=== PATIENT | female | born 1995 | race Caucasian/White ===

== ENCOUNTER → 2016-11-18 | Outpatient (CLI) | payer MEDICAID ==
[~2016-11-18] MED LIST: MOTR200T44 PO; PRENTAB13 PO; TYLE167L PO
[2016-11-18 13:39] LABS: MEAN CORPUSCULAR HEMOGLOBIN 32.3 pg (27.0-33.0); MEAN CORPUSCULAR HGB CONC 34.9 g/dl (32.0-36.5); MEAN CORPUSCULAR VOLUME 92.6 fl (80.0-96.0); RED CELL DISTRIBUTION WIDTH 13.7 % (11.5-14.5); WHITE BLOOD COUNT 10.1 K/mm3 (4.0-10.0)
== END ==
LOC: M SMT 09:41
PROVIDERS: ATTEND Advanced Practice Midwife
DX: Z34.83 Encounter for supervision of other normal pregnancy, third trimester (principal)

== ENCOUNTER → 2016-12-02 | Outpatient (REF) | payer MEDICAID | LOC: M LAB REF 12:53 | PROVIDERS: ATTEND Advanced Practice Midwife | DX: Z34.83 Encounter for supervision of other normal pregnancy, third trimester (principal) ==

== ENCOUNTER 2016-12-25 19:53 | Inpatient (IN) | payer OTHER ==
[~2016-12-25] VITALS: Ht 162.6 cm; Wt 65.0 kg
[2016-12-25 19:58] VITALS: BP 121/75
[2016-12-25 20:02] VITALS: BP 121/75
[2016-12-25] MEDS ORDERED: OXYTOCIN 30 UNITS IN 0.9% NaCl 500ML IV BAG (J2590) As Ordered ONE (20:13)
[2016-12-25 20:31] VITALS: BP 109/77
[2016-12-25] MEDS ORDERED: OXYTOCIN DRIP 30 UNITS in APPROPRIATE DILUENT 1 EA IV SCH (22:11)
[2016-12-25 22:15] VITALS: BP 143/75
[2016-12-25] MEDS ORDERED: METHYLERGONOVINE MALEATE 0.2 MG TAB PO PRN (22:15)
[2016-12-25] MEDS ORDERED: DOCUSATE SODIUM 100 MG CAP PO PRN (22:15)
[2016-12-25] MEDS ORDERED: ANUSOL HC CREAM 30GM TOP PRN (22:15)
[2016-12-25] MEDS ORDERED: MEASLES,MUMPS,RUBELLA VACCINE INJ (MMR-II) (90707) SC SCH (22:15)
[2016-12-25] MEDS ORDERED: RHOGAM 300 MCG (1500 IU) INJ (J2790) IM SCH (22:15)
[2016-12-25] MEDS ORDERED: ACETAMINOPHEN 500 MG TAB PO PRN (22:15)
[2016-12-25] MEDS ORDERED: DIBUCAINE 1% OINTMENT 30GM TOP PRN (22:15)
[2016-12-25 22:25] LABS: CORD GAS ABE V -0.1; CORD GAS HCO3 V 23.3 MEQ/L; CORD GAS O2 SAT V 90.1 %; CORD GAS PCO2 V 34.2 mmHg; CORD GAS PH V 7.451 UNITS; CORD GAS PO2 V 47.2 mmHg; CORD GAS SBC V 24.3 MEQ/L; CORD GAS TCO2 V 24.3 MEQ/L
[2016-12-25 22:28] LABS: CORD GAS ABE A -0.4; CORD GAS HCO3 A 24.5 MEQ/L; CORD GAS O2 SAT A 42.4 %; CORD GAS PCO2 A 41.2 mmHg; CORD GAS PH A 7.393 UNITS; CORD GAS PO2 A 19.5 mmHg; CORD GAS SBC A 23.2 MEQ/L; CORD GAS TCO2 A 25.8 MEQ/L
[2016-12-25 22:30] VITALS: BP 105/56
[2016-12-25 22:39] LABS: MEAN CORPUSCULAR HEMOGLOBIN 31.8 pg (27.0-33.0); MEAN CORPUSCULAR VOLUME 90.7 fl (80.0-96.0); RED CELL DISTRIBUTION WIDTH 13.6 % (11.5-14.5); WHITE BLOOD COUNT 10.8 K/mm3 (4.0-10.0)
[2016-12-25 22:45] VITALS: BP 103/76
[2016-12-26 00:28] VITALS: BP 108/56
[2016-12-26] MEDS: IBUPROFEN 800 MG TAB PO PRN ×2 (01:25→17:08)
[2016-12-26 05:46] VITALS: BP 130/70
[2016-12-26] MEDS: PRENATAL VITAMINS CHEWABLE TABLET PO SCH (09:33)
--- NOTE | 2016-12-26 12:11 | HPE ---
DATE OF ADMISSION: 12/25/2016 Anaya is a 21-year-old female 2, para 1-0-0-1 with an estimated date of confinement (EDC) of 12/27/2016, estimated gestational age (EGA) 39 and 5/7 weeks gestation who presented to labor and delivery with complaints of contractions every 2 to 3 minutes. Upon evaluation in labor and delivery, she was found to be in active labor. At this point, a decision was made to admit the patient. She does have a history of rapid labor, delivered a last baby in 4 hours as was also so complicated with a delayed hemorrhage. The lab reviewed. Blood type is O+, rubella immune, hepatitis negative, human immunodeficiency virus (HIV) negative, GC chlamydia negative, one-hour sugar testing was within normal limits. Her Group B streptococcus (GBS) is negative: MEDICAL HISTORY: Denies. PAST SURGICAL HISTORY: Denies. SOCIAL HISTORY: Denies any alcohol or drug use. REVIEW OF SYSTEMS: Unremarkable. FAMILY HISTORY: The father of the baby has a three cousins with Down syndrome. Father of the baby also has a family history of heart murmur. The rest of the history was within normal limits. MEDICATIONS: vitamins ALLERGIES: No known drug allergies. PHYSICAL EXAMINATION: Normal-appearing female in no acute distress. ABDOMEN: Soft, nontender, nondistended. EXTREMITIES: No clubbing, cyanosis or edema. VAGINAL EXAM: 4 cm, 90% effaced, fetus at -2 station, in vertex position with a bulging membrane. Tracing reviewed category one tracing with contractions every 2 to 3 minutes. ASSESSMENT: Intrauterine at 39 and 5/7 weeks' gestation in active labor. 2. Group B streptococcus (GBS) negative. 3. She has a history of rapid labor. PLAN: Admit the patient to labor and delivery. Routine labs sent. Pain management discussed. The patient opted for no pain medications at this point. Will continue to monitor. Anticipate delivery.
[2016-12-26 17:57] VITALS: BP 111/66
[2016-12-27] MEDS: diphenhydrAMINE 25 MG CAP PO SCH ×3 (00:49→08:12)
[2016-12-27] MEDS: IBUPROFEN 800 MG TAB PO PRN (00:49)
[2016-12-27 05:37] VITALS: BP 115/56
[2016-12-27] MEDS: PRENATAL VITAMINS CHEWABLE TABLET PO SCH (08:12)
== END 2016-12-27 12:30 | disposition home or self-care (01) | DRG 560 ==
LOC: M LDO 19:53 → M LDI 20:04 → M OBS 12-26 00:15
PROVIDERS: ADMIT Obstetrics & Gynecology; ATTEND Obstetrics & Gynecology
PROC: 10E0XZZ Delivery of Products of Conception, External Approach (ICD-10-PCS; principal; 2016-12-25)
DX: O80 Encounter for full-term uncomplicated delivery (principal); Z37.0 Single live birth; Z3A.39 39 weeks gestation of pregnancy

== ENCOUNTER → 2017-02-02 | Outpatient (CLI) | payer OTHER ==
[~2017-02-02] MED LIST changes: -PRENTAB13 PO; +PRENTAB20 PO
[2017-02-02 14:26] LABS: THYROXINE (T4) 7.3 UG/DL (4.5-12.0)
== END ==
LOC: M SMT 09:13
PROVIDERS: ATTEND Advanced Practice Midwife
DX: Z13.89 Encounter for screening for other disorder (principal)

== ENCOUNTER → 2018-06-01 | Outpatient (CLI) | payer BC ==
[2018-06-01 14:48] LABS: BASO % 0.2 % (0.0-1.0); EOS # 0.1 10^3/uL (0.0-0.50); EOS % 0.5 % (0.0-3.0); HEMATOCRIT 41.2 % (36.0-47.0); IMMATURE GRANULOCYTE % 0.2 % (0-3.0); LYMPH # 1.2 10^3/uL (1.5-6.5); LYMPH % 12.7 % (24.0-44.0); MEAN CORPUSCULAR HEMOGLOBIN 30.2 pg (27.0-33.0); MEAN CORPUSCULAR VOLUME 88.8 fl (80.0-96.0); MONO # 0.6 10^3/uL (0.0-0.8); MONO % 5.7 % (0.0-5.0); NEUTROPHILS # 7.8 10^3/uL (1.8-7.7); NEUTROPHILS % 80.7 % (36.0-66.0); PLATELET COUNT, AUTOMATED 253 10^3/uL (150-450); RED BLOOD COUNT 4.64 10^6/uL (4.00-5.40); RED CELL DISTRIBUTION WIDTH 12.9 % (11.5-14.5); WHITE BLOOD COUNT 9.7 10^3/uL (4.0-10.0)
[2018-06-01 15:42] LABS: HEPATITIS C VIRUS ABY INDEX 0.1 INDEX (<0.8)
[2018-06-01 15:42] LABS: HBsAg Prenatal NEGATIVE (NEGATIVE); HIV 1&2 SCREEN CENTAUR NEGATIVE (NEGATIVE); RUBELLA IgG QUALITATIVE IMMUNE (IMMUNE)
== END ==
LOC: M SMT 09:56
DX: Z36.89 Encounter for other specified antenatal screening (principal)
CPT/HCPCS: 86762

== ENCOUNTER → 2018-06-29 | Outpatient (REF) | payer BC ==
[2018-06-29 21:08] LABS: CHLAMYDIA DNA AMPLIFICATION NEGATIVE (NEGATIVE); GC DNA AMPLIFICATION NEGATIVE (NEGATIVE)
== END ==
LOC: M LAB REF 16:37
PROVIDERS: ATTEND Advanced Practice Midwife
DX: Z34.81 Encounter for supervision of other normal pregnancy, first trimester (principal)

== ENCOUNTER → 2018-08-01 | Outpatient (CLI) | payer BC ==
--- NOTE | 2018-08-01 14:49 | REP ---
Clinical: Anatomical evaluation. Comparison: None . Findings: Examination demonstrates a single live intrauterine in cephalic presentation. motion is identified by technologist. Placenta is noted posterior and grade grade 1 without evidence for placenta previa or abruption. Amniotic fluid volume is normal. Cervix measures 3.6 cm in length and appears closed. No evidence for nuchal cord. Gestational age by current measurements 20 weeks 0 days with ARETHA 12/19/2018 . FHR equals 153 beats per minute. BPD 4.7 cm 20 weeks 2 days HC 17.5 cm 20 weeks 0 days AC 15.6 cm 20 weeks 6 days FL 3.2 cm 20 weeks 0 days HL 3.2 cm 20 weeks 4 days HC/AC ratio 1.12 Estimated weight 352 grams ( 61st percentile). Anatomical assessment demonstrates normal structures including cranium, choroid plexus, cavum, cerebellum/posterior fossa, facial features, lungs, diaphragm, stomach, cord insertion/three-vessel cord, kidneys/bladder, spine, and extremities. Limited evaluation of the facial profile, and heart/ventricular outflow tracts noted. Impression: Single live intrauterine in cephalic presentation. Anatomical limitations as noted above. Remainder of the examination is within normal limits. Electronically Signed by Clay Bryson MD 08/01/2018 02:41 P
== END ==
LOC: M SMT 13:25
PROVIDERS: ATTEND Advanced Practice Midwife
DX: Z34.82 Encounter for supervision of other normal pregnancy, second trimester (principal)

== ENCOUNTER → 2018-08-15 | Outpatient (CLI) | payer BC ==
--- NOTE | 2018-08-27 09:54 | REP ---
Obstetric sonography: Repeat dictation. History: Followup anatomy. Comparison study August 01, 2018. This exam is presented to me for repeat dictation on 08/27/2018. Findings: Scanning through the gravid uterus demonstrates a viable single intrauterine gestation in a cephalic lie. motion is observed and heart rate is recorded at 157 beats per minute. An anterior grade 1 placenta is seen without evidence of previa. Amniotic fluid is subjectively normal. Closed cervical length measures 5.5 cm. No extrauterine abnormality is observed. There has been appropriate interval growth. No anomaly is seen. The following anatomic structures are identified and felt to be sonographically unremarkable: cranium, choroid plexus, cavum, cerebellum and posterior fossa, face and profile, lungs, four-chamber heart with left and right ventricular outflow tract views, diaphragm, left-sided stomach, abdominal wall cord insertion, three-vessel umbilical cord, kidneys and bladder, spine, upper and lower extremities. Biometry chart: BPD 5.2 cm 21 weeks 5 days Head circumference 19.6 cm 21 weeks 5 days Abdominal circumference 16.7 cm 21 weeks 5 days Femur length 3.8 cm 22 weeks 2 days Humeral length 3.7 cm 22 weeks 6 days Cerebellar diameter 2.4 cm 21 weeks 6 days HC/AC ratio normal 1.17. Cephalic index normal 0.72. Estimated weight 460 grams, 1 pound 0 ounces, 42nd percentile for 22 weeks 0 days. Impression: Viable single intrauterine gestation at 21 weeks 4 days by today's composite sonographic criteria. ARETHA by today's sonography December 22, 2018. The anatomic survey is felt to be complete. Electronically Signed by Garry Finnegan MD 08/27/2018 01:26 P
== END ==
LOC: M SMT 13:31
PROVIDERS: ATTEND Obstetrics & Gynecology
DX: Z34.82 Encounter for supervision of other normal pregnancy, second trimester (principal); Z36.89 Encounter for other specified antenatal screening; Z3A.21 21 weeks gestation of pregnancy

== ENCOUNTER → 2018-09-14 | Outpatient (CLI) | payer BC ==
[2018-09-14 13:29] LABS: HEMATOCRIT 36.7 % (36.0-47.0); HEMOGLOBIN 12.4 g/dl (12.0-15.5); MEAN CORPUSCULAR HEMOGLOBIN 31.2 pg (27.0-33.0); MEAN CORPUSCULAR HGB CONC 33.8 g/dl (32.0-36.5); MEAN CORPUSCULAR VOLUME 92.4 fl (80.0-96.0); PLATELET COUNT, AUTOMATED 196 10^3/uL (150-450); RED BLOOD COUNT 3.97 10^6/uL (4.00-5.40); WHITE BLOOD COUNT 9.1 10^3/uL (4.0-10.0)
== END ==
LOC: M SMT 08:38
PROVIDERS: ATTEND Advanced Practice Midwife
DX: Z34.82 Encounter for supervision of other normal pregnancy, second trimester (principal); Z36.89 Encounter for other specified antenatal screening

== ENCOUNTER → 2018-10-30 | Outpatient (CLI) | payer BC ==
--- NOTE | 2018-10-31 03:37 | REP ---
Clinical: Growth evaluation. Comparison: 08/15/2018 . Findings: Examination demonstrates a single live intrauterine in breech presentation. motion is identified by technologist. Placenta is noted posterior and grade grade 1 without evidence for placenta previa or abruption. Amniotic fluid volume is normal. Cervix measures 4.1 cm in length and appears closed. No evidence for nuchal cord. Gestational age by LMP 32 weeks 2-day with ARETHA is 12/23/2018 . Gestational age by current measurements 35 weeks 0 days with ARETHA 12/04/2018 . FHR equals 141 beats per minute. BPD 8.4 cm 33 weeks 4 days HC 31.0 cm 34 weeks 5 days AC 31.1 cm 35 weeks 0 days FL 7.0 cm 35 weeks 6 days HL 6.1 cm 35 weeks 4 days HC/AC ratio 1.00 Estimated weight 2585 grams ( greater than 97 percentile based on age by LMP and first ultrasound percentile). Amniotic fluid index: 12.7 cm (8.5 - 24.3) Umbilical cord SD ratio: 2.92 (2.35 - 3.35). Impression: 1. Single live advanced gestation in breech presentation. 2. Greater than expected interval growth noted. Electronically Signed by Clay Bryson MD 10/31/2018 03:27 A
== END ==
LOC: M RAD 08:13
PROVIDERS: ATTEND Advanced Practice Midwife
DX: O26.843 Uterine size-date discrepancy, third trimester (principal); Z3A.35 35 weeks gestation of pregnancy; O32.1XX1 Maternal care for breech presentation, fetus 1

== ENCOUNTER → 2018-11-21 | Outpatient (CLI) | payer BC ==
--- NOTE | 2018-11-21 16:07 | REP ---
Clinical: Growth evaluation Comparison: 10/30/2018 . Findings: Examination demonstrates a single live intrauterine in cephalic presentation. motion is identified by technologist. Placenta is noted right lateral and grade grade II/III without evidence for placenta previa or abruption. Amniotic fluid volume is normal. Cervix measures 3.6 cm in length and appears closed. No evidence for nuchal cord. Prominent meconium identified. Gestational age by LMP 35 weeks 3 days with ARETHA 12/23/2018 . Gestational age by current measurements 37 weeks 1 day with ARETHA 12/11/2018 . FHR equals 152 beats per minute. BPD 9.2 cm 37 weeks 1 day HC 33.1 cm 37 weeks 5 days AC 34.2 cm 38 weeks 1 day FL 7.1 cm 36 weeks 1 day HL 6.3 cm 36 weeks 4 days HC/AC ratio 0.97 Estimated weight 3227 grams ( 88th percentile). Amniotic fluid index: 18.7 cm (7.8 - 24.9) Umbilical cord SD ratio: 2.35 (2.00 - 3.00). Limited anatomical assessment demonstrates small bilateral hydroceles. Impression: 1. Single live intrauterine in cephalic presentation demonstrating appropriate interval growth. 2. Small hydroceles. 3. Prominent meconium. Electronically Signed by Clay Bryson MD 11/21/2018 03:59 P
== END ==
LOC: M RAD 09:53
PROVIDERS: ATTEND Obstetrics & Gynecology
DX: O26.843 Uterine size-date discrepancy, third trimester (principal); Z3A.37 37 weeks gestation of pregnancy

== ENCOUNTER → 2018-11-22 | Outpatient (REF) | payer BC | LOC: M LAB REF 13:17 | PROVIDERS: ATTEND Obstetrics & Gynecology | DX: Z34.83 Encounter for supervision of other normal pregnancy, third trimester (principal) ==

== ENCOUNTER 2018-12-16 08:50 | Inpatient (IN) | payer BC ==
[~2018-12-16] VITALS: Ht 162.6 cm; Wt 75.3 kg
[2018-12-16] VITALS (19 sets, daily range): BP systolic 112–138; BP diastolic 63–86
[2018-12-16] MEDS: miSOPROStol 50 MCG 1/2 TAB (S0191) SL SCH ×2 (10:03→14:04)
[2018-12-16 10:09] LABS: HEMATOCRIT 38.9 % (36.0-47.0); HEMOGLOBIN 13.5 g/dl (12.0-15.5); MEAN CORPUSCULAR HEMOGLOBIN 31.8 pg (27.0-33.0); MEAN CORPUSCULAR HGB CONC 34.7 g/dl (32.0-36.5); MEAN CORPUSCULAR VOLUME 91.7 fl (80.0-96.0); PLATELET COUNT, AUTOMATED 153 10^3/uL (150-450); RED BLOOD COUNT 4.24 10^6/uL (4.00-5.40); WHITE BLOOD COUNT 8.9 10^3/uL (4.0-10.0)
--- NOTE | 2018-12-16 15:10 | HPE ---
DATE OF ADMISSION: 12/16/2018 23-year-old, G3, para 2-0-0-2 female at 39 and 0/7 weeks gestation by last menstrual period and consistent with 10-week ultrasound. Estimated date of confinement (EDC) 12/23/2018, who presents for induction of labor. She has occasional contractions. She denies vaginal bleeding. COURSE: The patient initiated care at 10 weeks gestation. First trimester blood pressure was 106/64. Her weight was 116 pounds. She had no complications. OBSTETRICAL HISTORY: 1. May 2015, 41 week vaginal delivery, 8 pounds 12 ounce male. 2. December 2016, 40 week vaginal delivery, 8 pounds 11 ounce male . MEDICAL HISTORY: None. SURGERIES: None. ALLERGIES: None. SOCIAL HISTORY: The patient is . She lives in [place]. She denies cigarettes, alcohol or drug use. FAMILY HISTORY: Noncontributory. PHYSICAL EXAMINATION: Blood pressure 118/68, pulse 89, temperature is 99.0, respiratory rate 16. No apparent distress. HEAD AND NECK: Exam normal. LUNGS: Clear. HEART: Regular rate and rhythm. ABDOMEN: Nontender. Gravid. heart tones category 1. Contractions irregular. Sterile vaginal examination is 2 to 3 cm, 50%, -3, posterior, soft, vertex. EXTREMITIES: Nontender. LABORATORIES: Blood type O positive, Rubella immune, RPR nonreactive, Group B streptococcus (GBS) negative on 11/22/2018. ASSESSMENT: 23-year-old G3, para 2 female at 39 and 0/7 weeks gestation presents for labor induction. PLAN: The patient is admitted on 12/16/2018. Risks of induction were discussed.
[2018-12-16] MEDS ORDERED: LR 1,000 ML IV SCH (18:15)
[2018-12-16] MEDS ORDERED: OXYTOCIN DRIP 30 UNITS in APPROPRIATE DILUENT 1 EA IV SCH (18:15)
[2018-12-16] MEDS ORDERED: BICITRA 30ML SOLN UDC PO ONE (19:45)
[2018-12-17] MEDS ORDERED: RHOGAM 300 MCG (1500 IU) INJ (J2790) IM SCH
[2018-12-17] MEDS ORDERED: DIBUCAINE 1% OINTMENT 30GM TOP PRN
[2018-12-17] MEDS ORDERED: OXYTOCIN DRIP 30 UNITS in APPROPRIATE DILUENT 1 EA IV ONE ×2
[2018-12-17] MEDS ORDERED: ONDANSETRON 4MG/2ML VIAL (J2405) IV PRN
[2018-12-17] MEDS ORDERED: METHYLERGONOVINE MALEATE 0.2 MG TAB PO PRN
[2018-12-17] MEDS ORDERED: MEASLES,MUMPS,RUBELLA VACCINE INJ (MMR-II) (90707) SC SCH
[2018-12-17] MEDS ORDERED: DOCUSATE SODIUM 100 MG CAP PO PRN
[2018-12-17] MEDS ORDERED: FAMOTIDINE 20 MG TAB PO ONE (00:15)
[2018-12-17 00:22] VITALS: BP 133/71
[2018-12-17 00:52] VITALS: BP 118/64
[2018-12-17 01:59] VITALS: BP 121/59
[2018-12-17] MEDS: IBUPROFEN 800 MG TAB PO PRN ×2 (02:05→13:27)
[2018-12-17] MEDS: ACETAMINOPHEN 500 MG TAB PO PRN ×2 (05:47→18:06)
[2018-12-17 05:59] VITALS: BP 114/56
[2018-12-17] MEDS: PRENATAL VITAMINS CHEWABLE TABLET PO SCH (08:37)
--- NOTE | 2018-12-17 12:55 | DN ---
DATE OF DELIVERY: 12/16/2018 PREDELIVERY DIAGNOSIS: 39 weeks, labor induction. POSTDELIVERY DIAGNOSIS: Delivered. PROCEDURE: Spontaneous vaginal delivery. GLOBAL CLIMATE CHANGE RESEARCHER: Dr. Miguel Angel Fernando MD ANESTHESIA: None. ESTIMATED BLOOD LOSS: 300 mL. FINDINGS: 9 pound 6 ounce male infant, agars 8 and 9. DELIVERY SUMMARY: After a 5 minute second stage the patient had spontaneous delivery of a 9 pound 6 ounce male , scores 8 and9, with no delivery anesthesia. There was no nuchal cord. The shoulders delivered with ease. The was handed to the mother. Cord was then clamped and cut. The placenta delivered spontaneously and appeared to be intact. The patient received IV Pitocin after delivery of the placenta. There were no vaginal lacerations present. Sponge counts were correct.
[2018-12-17 18:04] VITALS: BP 112/76
[2018-12-18 05:29] VITALS: BP 115/60
[2018-12-18] MEDS: PRENATAL VITAMINS CHEWABLE TABLET PO SCH (07:36)
[2018-12-18] MEDS: ACETAMINOPHEN 500 MG TAB PO PRN (07:36)
[2018-12-18] MEDS ORDERED: IBUP80TA PO (12:00)
[2018-12-18] MEDS ORDERED: ACET-683 PO (12:00)
[2018-12-18] MEDS ORDERED: COLA100C5 PO (12:00)
== END 2018-12-18 12:40 | disposition home or self-care (01) | DRG 560 ==
LOC: M LDI 08:50 → M OBS 12-17 01:20
PROVIDERS: ADMIT Specialist; ATTEND Specialist
PROC: 10E0XZZ Delivery of Products of Conception, External Approach (ICD-10-PCS; principal; 2018-12-16)
DX: O80 Encounter for full-term uncomplicated delivery (principal); Z37.0 Single live birth; Z3A.39 39 weeks gestation of pregnancy

== ENCOUNTER → 2020-07-04 | Outpatient (CLI) | payer SELFPAY ==
[~2020-07-04] MED LIST changes: +ACET-683 PO; +COLA100C5 PO; +IBUP80TA PO
== END ==
LOC: M LABSMTC 10:38
PROVIDERS: ATTEND Pediatrics
DX: Z20.828 Contact with and (suspected) exposure to other viral communicable diseases (principal)